=== PATIENT | female | born 1970 | race Caucasian/White ===

== ENCOUNTER → 2022-02-02 | Outpatient (CLI) | payer OTHER ==
[~2022-02-02] MED LIST: FLONASE SPRAY; LISINOPRIL20 MG PO
[2022-02-02 11:21] LABS: HEMOGLOBIN 15.4 gm/dl (12.3-15.3); RED BLOOD COUNT 5.68 M/UL (4.00-5.10)
[2022-02-02 11:50] LABS: BUN/CREATININE RATIO 19 (0-10)
== END ==
LOC: OPSV2 10:00
PROVIDERS: Obstetrics & Gynecology
DX: Z01.818 Encounter for other preprocedural examination (principal); D25.9 Leiomyoma of uterus, unspecified
CPT/HCPCS: 36415; 71046; 80053; 81001; 85025; 93005

== ENCOUNTER 2022-02-09 07:57 | Day surgery (SDC) | payer OTHER ==
[~2022-02-09] VITALS: Ht 170.2 cm; Wt 96.6 kg
[2022-02-09] MEDS ORDERED: DOCUSATE SODIU250 MG PO (09:34)
[2022-02-09] MEDS ORDERED: HYDROCODONE-AC1 EACH PO (09:34)
[2022-02-09] MEDS ORDERED: IBUPROFEN600 MG PO (09:34)
[2022-02-09 13:07] LABS: HEMOGLOBIN 13.1 gm/dl (12.3-15.3); RED BLOOD COUNT 4.78 M/UL (4.00-5.10); WHITE BLOOD COUNT 12.2 K/UL (4.5-11.0)
[2022-02-09 13:31] LABS: BUN/CREATININE RATIO 14 (0-10)
[2022-02-10 03:20] LABS: HEMOGLOBIN 12.2 gm/dl (12.3-15.3)
== END 2022-02-10 11:03 | disposition home or self-care (01) ==
LOC: OR 07:57 → M/S 15:03 → OR 02-10 11:03
PROVIDERS: Obstetrics & Gynecology; Registered Nurse
DX: D25.9 Leiomyoma of uterus, unspecified (principal); N80.0 Endometriosis of uterus; N84.0 Polyp of corpus uteri; E66.01 Morbid (severe) obesity due to excess calories; N83.8 Other noninflammatory disorders of ovary, fallopian tube and broad ligament; N83.201 Unspecified ovarian cyst, right side; F17.200 Nicotine dependence, unspecified, uncomplicated; Z68.41 Body mass index [BMI] 40.0-44.9, adult
CPT/HCPCS: 36415; 80048; 85014; 85018; 85025; C1769; J0690; J1100; J1170; J2250; J2405; J2550; J2704; J2710; J3010; J7050